=== PATIENT | female | born 1990 | race Native Hawaiian/Other Pacific Islander ===

== ENCOUNTER 2016-10-30 13:55 | Outpatient (CLI) | payer MEDICAID ==
--- NOTE | 2016-10-31 12:55 | Ultrasound Report ---
TRANSABDOMINAL AND TRANSVAGINAL OBSTETRICAL ULTRASOUND:10/30/16 13:55:00 CLINICAL: Size-date discrepancy. FINDINGS: Transabdominal and transvaginal ultrasound demonstrated a single intrauterine gestational sac and a single living intrauterine fetus. [place]-rump length measured 18 mm corresponding to a gestational age of 8 weeks, 2 days. heart rate = 182 beats/min. Normal appearance of the fetus, gestational sac and yolk sac. Closed cervix. No subchorionic collection or placenta previa. No adnexal mass or free fluid. Normal right ovary. A 1.5 cm cyst of the left ovary.The right ovary measured 3.2 x 1.5 x 2.4cm. The left ovary measured 3.1 x 1.8 x 3.5-cm. The uterus measured 9.6 x 6.2 x 8.5-cm. IMPRESSION: Single living intrauterine fetus at 8 weeks, 2 days based on crown-rump length measurement. Dating by ultrasound is concordant with the LMP. EDC based on ultrasound is 06/09/17. EDC based on LMP is 06/11/17.
== END 2016-10-30 13:56 | disposition home or self-care (01) ==
LOC: SPVWC 13:55
PROVIDERS: ATTEND Specialist
DX: O26.841 Uterine size-date discrepancy, first trimester (principal); O34.81 Maternal care for other abnormalities of pelvic organs, first trimester; N83.202 Unspecified ovarian cyst, left side; Z3A.08 8 weeks gestation of pregnancy
CPT/HCPCS: 76801; 76817